=== PATIENT | female | born 1960 | race Hispanic/Latino ===

== ENCOUNTER 2018-11-24 19:43 | Emergency (ER) | payer OTHER ==
[~2018-11-24] VITALS: Ht 160 cm; Wt 64.9 kg
--- OUTSIDE RECORDS SUMMARY | 2018-11-24 19:45 | XMS REPORT | Summary of Care ---
Author Author [facility] Primary Care [facility] Organization [facility] Primary Care [facility] Address Unknown Phone Unavailable Encounter HQ Encntr_aliyannick(FIN) [id number] Date(s): 08/07/17 - 08/07/17 [facility] Primary Care [facility] [address], [address] [place], [place] [address] [address] [phone] Discharge Disposition: Home or Self Care Attending Physician: VISIT, NURSE DWN Vital Signs Most recent to 1 oldest [Reference Range]: Temperature Oral 98.2 DegF [96.4-99.1 DegF] (08/07/17 8:32 AM) Problem List No data available for this section Allergies, Adverse Reactions, Alerts No data available for this section Medications No data available for this section Results No data available for this section Immunizations Given and Recorded Vaccine Date Status Refusal Reason influenza virus vaccine, inactivated 08/07/17 Given Procedures No data available for this section Social History No data available for this section Assessment and Plan No data available for this section
--- OUTSIDE RECORDS SUMMARY | 2018-11-24 19:45 | XMS REPORT ---
Author Author [facility] Address Unknown Phone Unavailable Care Team Providers Care Pet Handler Name Role Phone DUKE-PIERCENISHIET Unavailable Unavailable RADHA CANADA Unavailable Unavailable Problems This patient has no known problems. Allergies, Adverse Reactions, Alerts This patient has no known allergies or adverse reactions. Medications This patient has no known medications. Results Test Description Test Time Test Comments Text Results Atomic Results Result Comments ELECTROLYTES 2017-12-02 17:31:00 SODIUM (BEAKER) (test bdav=187) 138 meq/L 136-145 POTASSIUM (BEAKER) (test eulp=128) 4.0 meq/L 3.5-5.1 CHLORIDE (BEAKER) (test rrnq=563) 104 meq/L 98-107 CO2 (BEAKER) (test figz=981) 27 meq/L 22-29 BUN AND [id number] 17:31:00* Test Item Value Reference Range Comments BLOOD UREA NITROGEN (BEAKER) (test opwy=061) 12 mg/dL 7-21 CREATININE (BEAKER) (test eshz=188) 0.74 mg/dL 0.57-1.25 EGFR (BEAKER) (test vake=9358) 80 mL/min/1.73 sq m ESTIMATED GFR IS NOT ACCURATE CREATININE CLEARANCE IN PREDICTING GLOMERULAR FILTRATION RATE. ESTIMATED GFR IS NOT APPLICABLE FOR DIALYSIS PATIENTS. [id number] 17:13:00* Test Item Value Reference Range Comments HEMOGLOBIN (BEAKER) (test jxry=589) 13.7 GM/DL 11.2-15.7 TISSUE [id number] 10:42:00Surgical Pathology Report Case: [id number] Authorizing Provider: Richard Canada Collected: 11/06/2017 0817 Ordering Location: [facility] Endoscopy Received: 11/06/2017 1357 Services Pathologist: Teagan Rodas MD Specimen: Polyp, Colon - Transverse, cold snare x 2 TRANSVERSE COLON, BIOPSY: - TUBULAR ADENOMA/S - NEGATIVE FOR HIGH-GRADE DYSPLASIA - SEE MICROSCOPIC SECTIONMO/PL Signing Pathologist Direct Phone Line: [phone] signed by Teagan Rodas MD on 11/10/2017 at 10:42 [id number] cancer screeningTransverse colon polypReceived in formalin labeled "polyp, colon transverse" are four fragments measuring 1.5 x 1.0 x 0.1 cm in aggregate. Entirely submitted A1. DB/plThe slides show four fragments of tissue, two of which show colonic mucosa with adenomatous change, consistent with tubular adenomas. No other features such as high-grade dysplasia, or noted .Two fragments do not show significant diagnostic changes.
--- OUTSIDE RECORDS SUMMARY | 2018-11-24 19:45 | XMS REPORT | Continuity of Care Document ---
Author Author [facility] Address Unknown Phone Unavailable Problems Problem Status Onset Date Classification Date Reported Comments Source Medications Medication Details Route Status Patient Instructions Ordering Provider Order Date Source Drug Treatment Unknown - unknown Active [facility] Allergies, Adverse Reactions, Alerts Substance Category Reaction Severity Reaction type Status Date Reported Comments Source Allergies Unknown propensity to adverse reactions Legacy Immunizations Immunization Date Given Site Status Last Updated Comments Source influenza virus vaccine, inactivated 08/07/2017 Left Deltoid completed [facility] Results Order Name Results Value Reference Range Date Interpretation Comments Source Vital Signs Vital Sign Value Date Comments Source Temperature Oral (F) 98.2 F 08/07/2017 Medical Group Encounters Location Location Details Encounter Type Encounter Number Reason For Visit Attending Provider ADM Date DC Date Status Source Outpatient [id number] NURSE VISIT 08/07/2017 Active Marge Kasper [facility] [place] [facility] [id number] NURSE VISIT 08/07/2017 08/08/2017 Medical Group Outpatient [id number] NURSE VISIT 05/12/2018 Active Marge Kasper Outpatient [id number] Kavita Mcrae 11/24/2018 Active Marge Kasper Procedures Procedure Code Date Perfomer Comments Source
--- OUTSIDE RECORDS SUMMARY | 2018-11-24 19:45 | XMS REPORT | Clinical Summary ---
Author Author [facility] Organization [facility] Address Unknown Phone Unavailable Care Team Providers Care Deli Manager Name Role Phone Nga Vela PCP Allergies Comments Active Allergy Reactions Severity Noted Date Pass-out Clarithromycin 11/02/2017 hallucinations Meperidine Other (See 11/02/2017 Comments) Sulfur Hives, 11/02/2017 Itching Medications End Date Status Medication Sig Dispensed Refills Start Date Active olmesartan (BENICAR) 40 Take 40 mg by 0 MG tablet mouth daily. Active CETIRIZINE HCL (ZYRTEC Take by 0 ORAL) mouth. Active escitalopram oxalate Take 5 mg by 0 (LEXAPRO) 5 MG tablet mouth daily. 12/02/2017 Discontinued escitalopram oxalate Take 20 mg by 0 (LEXAPRO) 20 MG tablet mouth daily. Active Problems Problem Noted Date Axillary mass 08/24/2013 Encounters Care Team Description Date Type Specialty Wolf-Kary Deshpande MD 12/02/2017 Hospital Pre-Admission Testing Encounter 12/02/2017 Orders Only General Internal Medicine after 11/23/2017 Social History Date Tobacco Use Types Packs/Day Years Used Never Smoker Smokeless Tobacco: Never Used Alcohol Use Drinks/Week oz/Week Comments Yes 1 Shots of 0.6 liquor Sex Assigned at Date Recorded Not on file Industry Job Start Date Occupation Not on file Not on file Not on file Travel End Travel History Travel Start No recent travel history available. Last Filed Vital Signs Time Taken Vital Sign Reading 12/02/2017 4:44 PM CDT Blood Pressure 113/78 12/02/2017 4:44 PM CDT Pulse 100 12/02/2017 4:44 PM CDT Temperature 36.6 C (97.8 F) 12/02/2017 4:44 PM CDT Respiratory Rate 20 12/02/2017 4:44 PM CDT Oxygen Saturation 99% - Inhaled Oxygen - Concentration 12/02/2017 4:44 PM CDT Weight 66 kg (145 lb 9.6 oz) 12/02/2017 4:44 PM CDT Height 160 cm (5' 3") 12/02/2017 4:44 PM CDT Body Mass Index 25.79 Plan of Treatment Not on file Procedures Comments Procedure Name Priority Date/Time Associated Diagnosis ECG 12-LEAD Routine 12/02/2017 5:01 PM CDT Procedure Note - Interface, External Ris In - 12/02/2017 5:05 PM CDT Ventricula r Rate 90 BPM Atrial Rate 90 BPM P-R Interval 152 ms QRS Duration 76 ms Q-T Interval 354 ms QTC Calculatio n(Bazett) 433 ms P [place] 69 degrees R [place] 52 degrees T [place] 52 degrees Normal sinus rhythm Normal ECG No previous ECGs available ECG 12-LEAD Routine 12/02/2017 5:01 PM CDT BUN AND CREATININE Routine 12/02/2017 4:55 PM CDT ELECTROLYTE PANEL Routine 12/02/2017 4:55 PM CDT HEMOGLOBIN Routine 12/02/2017 4:55 PM CDT after 11/23/2017 Results * ECG 12 lead (12/02/2017 5:01 PM CDT) Narrative Performed At Ventricular Rate 90 BPM GE MUSE Atrial Rate 90 BPM P-R Interval 152 ms QRS Duration 76 ms Q-T Interval 354 ms QTC Calculation(Bazett) 433 ms P [place] 69 degrees R [place] 52 degrees T [place] 52 degrees Normal sinus rhythm Normal ECG No previous ECGs available Confirmed by Saira VICKERS BASANT ([id number]) on 12/03/2017 7:51:36 AM Procedure Note Interface, External Ris In - 12/03/2017 7:51 AM CDT Ventricular Rate 90 BPM Atrial Rate 90 BPM P-R Interval 152 ms QRS Duration 76 ms Q-T Interval 354 ms QTC Calculation(Bazett) 433 ms P [place] 69 degrees R [place] 52 degrees T [place] 52 degrees Normal sinus rhythm Normal ECG No previous ECGs available Confirmed by Saira VICKERS BASANT ([id number]) on 12/03/2017 7:51:36 AM Performing Organization Address City/State/Zipcode Phone Number GE MUSE * BUN and Creatinine (12/02/2017 4:55 PM CDT) BUN 12 7 - 21 mg/dL [facility] Creatinine 0.74 0.57 - 1.25 mg/dL [facility] EGFR 80Comment: ESTIMATED GFR IS mL/min/1.73 sq m [facility] NOT ACCURATE CREATININE [facility] CLEARANCE IN PREDICTING GLOMERULAR FILTRATION RATE. ESTIMATED GFR IS NOT APPLICABLE FOR DIALYSIS PATIENTS. Specimen Blood Performing Organization Address [facility]/[place] [address] [phone] * Hemoglobin (12/02/2017 4:55 PM CDT) Hemoglobin 13.7 11.2 - 15.7 GM/DL [facility] Specimen Blood Performing Organization Address City/[facility]/Zipcode Phone Number [address] [address] [phone] [place] [address] * Electrolytes (12/02/2017 4:55 PM CDT) Sodium 138 136 - 145 meq/L [facility] Potassium 4.0 3.5 - 5.1 meq/L [facility] Chloride 104 98 - 107 meq/L [facility] CO2 27 22 - 29 meq/L [facility] Specimen Blood Performing Organization Address City/[facility]/Zipcode Phone Number [address] [phone] [place] [address] after 11/23/2017 Insurance Payer Benefit Subscriber ID Type Phone Address Plan / Group [employer] - MGD CARE CIG[employer] xxxxxxxxxxx HMO/POS HMO/POS/OP EN ACCESS
--- OUTSIDE RECORDS SUMMARY | 2018-11-24 19:45 | XMS REPORT ---
Author Author Admin, [place] Organization [facility] Address Unknown Phone Unavailable Allergies, Adverse Reactions, Alerts Allergy Name Reaction Description Start Date Severity Status Provider Allergies Unknown Conditions or Problems Problem Name Problem Code Onset Date Status Entry Date Provider Comment Standard Description Annotate Problems Unknown Medication List Medication Instructions Start Date Stop Date Generic Name NDC Status Provider Patient Instruction Drug Treatment Unknown - unknown
[2018-11-24] MEDS ORDERED: AUGMENTIN 875-1 EACH PO (19:59)
== END 2018-11-24 20:03 | disposition home or self-care (01) ==
LOC: ER 19:43
DX: S60.572A Other superficial bite of hand of left hand, initial encounter (principal); S60.571A Other superficial bite of hand of right hand, initial encounter; W54.0XXA Bitten by dog, initial encounter; Y92.008 Other place in unspecified non-institutional (private) residence as the place of occurrence of the external cause
CPT/HCPCS: 99282